=== PATIENT | female | born 1960 | race Caucasian/White ===

== ENCOUNTER 2020-09-05 00:33 | Emergency (ER) | payer MEDICARE, OTHER ==
[~2020-09-05] VITALS: Ht 162.6 cm; Wt 106.6 kg
[2020-09-05 01:00] VITALS: BP 157/83
--- NOTE | 2020-09-05 01:42 | NUR ---
ULTRASOUND IN PROGRESS AT BEDSIDE
--- NOTE | 2020-09-05 03:15 | NUR ---
Patient discharged to home in stable condition. Written and verbal after care instructions given. Patient verbalizes understanding of instruction. Pt wheeled to the waiting room to family
== END 2020-09-05 03:18 | disposition home or self-care (01) ==
LOC: ER 00:33
DX: R60.0 Localized edema (principal); M79.605 Pain in left leg; Z88.2 Allergy status to sulfonamides
CPT/HCPCS: 93971-TC